=== PATIENT | female | born 2000 | race Two or more races ===

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

== ENCOUNTER 2023-02-06 00:35 | Emergency (ER) | payer MEDICAID ==
[~2023-02-06] VITALS: Ht 154.9 cm; Wt 56.7 kg
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
[2023-02-06] MEDS ORDERED: IBUPROFEN 400 MG TABLET ONE (02:29)
[2023-02-06] MEDS ORDERED: IBUPROFEN 400 MG TABLET PO ONE (02:30)
--- NOTE | 2023-02-06 03:02 | NUR ---
PT TAKEN TO CT
--- NOTE | 2023-02-06 03:14 | NUR ---
PT BACK FROM CT
[2023-02-06 03:51] VITALS: BP 120/80
--- NOTE | 2023-02-06 03:51 | NUR ---
Patient discharged to home in stable condition. Written and verbal after care instructions given. Patient verbalizes understanding of instruction.
== END 2023-02-06 04:08 | disposition home or self-care (01) ==
LOC: ER 00:36
DX: S00.81XA Abrasion of other part of head, initial encounter (principal); G43.909 Migraine, unspecified, not intractable, without status migrainosus; V89.2XXA Person injured in unspecified motor-vehicle accident, traffic, initial encounter; Y93.89 Activity, other specified; Y92.89 Other specified places as the place of occurrence of the external cause; Y99.8 Other external cause status
CPT/HCPCS: 70450-TC